=== PATIENT | male | born 1990 | race Caucasian/White ===

== ENCOUNTER 2019-04-17 01:04 | Emergency (ER) | payer SELFPAY ==
[~2019-04-17] VITALS: Ht 185.4 cm; Wt 84.5 kg
[2019-04-17 01:16] VITALS: BP 125/81; Ht 185.4 cm; Wt 84.5 kg
== END 2019-04-17 02:49 | disposition home or self-care (01) ==
LOC: ED 01:04
DX: K08.89 Other specified disorders of teeth and supporting structures (principal)